=== PATIENT | female | born 1995 | race Two or more races ===

== ENCOUNTER 2022-01-11 13:02 | Emergency (ER) | payer MEDICAID, OTHER ==
[~2022-01-11] VITALS: Ht 152.4 cm; Wt 72.6 kg
[2022-01-11 13:07] VITALS: BP 129/79
[2022-01-11 14:55] LABS: Basophils # (auto) 0 10 ^3/uL (0-0.2); Eosinophils # (auto) 0 10 ^3/uL (0-0.8)
[2022-01-11 14:58] LABS: Basophils % (auto) 0.6 % (0.0-2.0); Eosinophils % (auto) 0.2 % (0.0-7.0); Hemoglobin 13.6 g/dL (12.2-16.2); Lymphocytes # (auto) 1.9 10 ^3/uL (0.4-5.4); Mean Corpuscular Hemoglobin 30.2 pg (28.0-32.0); Mean Corpuscular Hgb Conc. 35.8 g/dL (32.0-36.0); Mean Corpuscular Volume 84.5 fL (80.0-100.0); Monocytes # (auto) 0.5 10 ^3/uL (0-1.3); Monocytes % (auto) 5.6 % (0.0-12.0); Neutrophils % (auto) 71.6 % (37.0-80.0); Red Cell Distribution Width 13.9 % (11.8-14.3); White Blood Cell 8.4 10^3/uL (4.4-10.8)
[2022-01-11 15:15] LABS: Urine Bacteria FEW /hpf (None Seen); Urine Blood Negative /uL (Negative); Urine Mucus FEW (None Seen); Urine Specific Gravity 1.032 (1.001-1.035); Urine WBC 5 /hpf (0 - 5)
[2022-01-11] MEDS ORDERED: TAMSULOSIN HYDROCHLORIDE 0.4 MG CAP PO ONE (16:15)
== END 2022-01-11 17:36 | disposition home or self-care (01) ==
LOC: ER 13:02
DX: O26.891 Other specified pregnancy related conditions, first trimester (principal); R10.2 Pelvic and perineal pain; Z3A.08 8 weeks gestation of pregnancy
CPT/HCPCS: 36415; 76801; 76817; 81001; 84702; 85025

== ENCOUNTER → 2022-07-10 | Outpatient (CLI) | payer MEDICAID | END | disposition home or self-care (01) | LOC: LAB 08:40 | PROVIDERS: ATTEND Obstetrics & Gynecology | DX: N76.0 Acute vaginitis (principal) | CPT/HCPCS: 82951 ==

== ENCOUNTER → 2022-07-18 | Outpatient (CLI) | payer MEDICAID ==
[2022-07-18 09:16] LABS: Basophils # (auto) 0 10 ^3/uL (0-0.2); Basophils % (auto) 0.4 % (0.0-2.0); Eosinophils # (auto) 0 10 ^3/uL (0-0.8); Eosinophils % (auto) 0.2 % (0.0-7.0); Hematocrit 35.5 % (36.0-46.0); Hemoglobin 12.5 g/dL (12.2-16.2); Lymphocytes # (auto) 1.2 10 ^3/uL (0.4-5.4); Lymphocytes % (auto) 17.7 % (10.0-50.0); Mean Corpuscular Hemoglobin 30.5 pg (28.0-32.0); Mean Corpuscular Hgb Conc. 35.2 g/dL (32.0-36.0); Mean Corpuscular Volume 86.6 fL (80.0-100.0); Monocytes # (auto) 0.3 10 ^3/uL (0-1.3); Monocytes % (auto) 3.8 % (0.0-12.0); Neutrophils # (auto) 5.2 10 ^3/uL (1.6-8.6); Neutrophils % (auto) 77.9 % (37.0-80.0); Nucleated Red Blood Cells % 0.1 %; Red Cell Distribution Width 12.8 % (11.8-14.3); White Blood Cell 6.6 10^3/uL (4.4-10.8)
[2022-07-19 07:06] LABS: RPR Non Reactive (Non Reactive)
== END | disposition home or self-care (01) ==
LOC: LAB 08:55
PROVIDERS: ATTEND Obstetrics & Gynecology
DX: Z34.80 Encounter for supervision of other normal pregnancy, unspecified trimester (principal); Z3A.00 Weeks of gestation of pregnancy not specified
CPT/HCPCS: 36415; 84112; 85025; 86592

== ENCOUNTER 2022-08-12 04:06 | Inpatient (IN) | payer MEDICAID ==
[2022-08-11 09:34] LABS: Amphetamine Screen, Urine NEGATIVE (NEGATIVE); Barbiturate Scree,Urine NEGATIVE (NEGATIVE); Benzodiazephine Screen, Urine NEGATIVE (NEGATIVE); Cannabinoid Screen, Urine NEGATIVE (NEGATIVE); Cocaine Screen, Urine NEGATIVE (NEGATIVE); Opiate Scree,Urine NEGATIVE (NEGATIVE); Phencyclidine Screen, Urine NEGATIVE (NEGATIVE)
[2022-08-11 09:44] LABS: INR 0.87 (0.9-1.15); Partial Thromboplastin Time 26.8 sec (24.6-33.4)
[2022-08-11 09:47] LABS: Basophils # (auto) 0 10 ^3/uL (0-0.2); Basophils % (auto) 0.1 % (0.0-2.0); Eosinophils # (auto) 0 10 ^3/uL (0-0.8); Eosinophils % (auto) 0.3 % (0.0-7.0); Hematocrit 36.9 % (36.0-46.0); Hemoglobin 12.7 g/dL (12.2-16.2); Lymphocytes # (auto) 1.1 10 ^3/uL (0.4-5.4); Lymphocytes % (auto) 16.2 % (10.0-50.0); Mean Corpuscular Hemoglobin 30.1 pg (28.0-32.0); Mean Corpuscular Hgb Conc. 34.4 g/dL (32.0-36.0); Mean Corpuscular Volume 87.3 fL (80.0-100.0); Monocytes # (auto) 0.4 10 ^3/uL (0-1.3); Monocytes % (auto) 6.2 % (0.0-12.0); Neutrophils # (auto) 5.1 10 ^3/uL (1.6-8.6); Neutrophils % (auto) 77.2 % (37.0-80.0); Nucleated Red Blood Cells % 0.1 %; Red Blood Cells 4.23 10^6/uL (4.0-5.20); Red Cell Distribution Width 13.2 % (11.8-14.3); White Blood Cell 6.6 10^3/uL (4.4-10.8)
[2022-08-11 09:56] LABS: Albumin 2.5 g/dL (3.4-5.0); Calcium 8.9 mg/dL (8.5-10.1); Potassium 4.2 mmol/L (3.5-5.1)
[2022-08-11 09:58] LABS: Urine Blood Negative /uL (Negative); Urine Specific Gravity 1.017 (1.001-1.035)
[2022-08-12] VITALS (17 sets, daily range): BP systolic 95–127; BP diastolic 49–73
[~2022-08-12] VITALS: Ht 152.4 cm; Wt 81.6 kg
[2022-08-12] MEDS ORDERED: ceFAZolin 2 GM in D5W 5% 100 ML IV ONE (04:30)
[2022-08-12] MEDS ORDERED: LACTATED RINGER'S 1,000 ML IV ONE (04:30)
[2022-08-12 06:06] LABS: RPR Non Reactive (Non Reactive)
[2022-08-12] MEDS: LACTATED RINGER'S 1,000 ML IV SCH ×2 (06:41→13:07)
[2022-08-12] MEDS ORDERED: ONDANSETRON HCL 4 MG/2 ML VIAL ONE (07:00)
[2022-08-12] MEDS ORDERED: oxyTOCIN 10 UNIT/ML 10ML VIAL ONE (07:00)
[2022-08-12] MEDS ORDERED: DexAMETHasone SOD PHOS 10MG/1ML VIAL INJ ONE (07:00)
[2022-08-12] MEDS ORDERED: fentaNYL CITRATE 100 MCG/2 ML VL ONE (07:01)
[2022-08-12] MEDS ORDERED: MORPHINE SULF PF 5 MG/10 ML VIAL ONE (07:01)
[2022-08-12] MEDS ORDERED: SODIUM CHLORIDE LOCK 10 ML ONE (07:38)
[2022-08-12] MEDS ORDERED: GUM (CHEWING) 1 GUM CHEW CHEW ONE (08:30)
[2022-08-12] MEDS ORDERED: LACT. RINGERS/OXYTOCIN 20UNITS 1,000 ML IV ONE (08:30)
[2022-08-12] MEDS ORDERED: ceFAZolin 1GM/50ML 50 ML IV SCH (08:30)
[2022-08-12] MEDS ORDERED: ONDANSETRON HCL 4 MG/2 ML VIAL IV PRN ×2 (08:30→08:45)
[2022-08-12] MEDS ORDERED: HYDROmorphone HCL 2 MG/ML VL/or syr IV PRN (08:45)
[2022-08-12] MEDS ORDERED: NALOXONE HCL 0.4 MG/ML VIAL IV PRN (08:45)
[2022-08-12] MEDS ORDERED: diphenhdrAMINE HCL 50 MG/1 ML VL IV PRN (08:45)
[2022-08-12] MEDS ORDERED: NALBUPHINE HCL 10 MG/1ml INJECTION IV ONE (08:45)
[2022-08-12] MEDS: ACETAMINOPHEN IV 1000 MG/100ML (10MG/ML) IV PRN ×2 (11:28→20:47)
[2022-08-12] MEDS ORDERED: METHYLERGONOVINE MALEATE 0.2 MG/ML AMP IM ONE (13:45)
[2022-08-12] MEDS ORDERED: LIDOCAINE 2%HCL (LOCAL ANESTH.) INJ 20ML MDV ONE (13:45)
[2022-08-12] MEDS ORDERED: LACT. RINGERS/OXYTOCIN 20UNITS 0 ML IV ONE (13:46)
[2022-08-12] MEDS: ceFAZolin 1GM/50ML 50 ML IV SCH (18:00)
[2022-08-12 22:32] LABS: Basophils # (auto) 0 10 ^3/uL (0-0.2); Basophils % (auto) 0.3 % (0.0-2.0); Eosinophils # (auto) 0 10 ^3/uL (0-0.8); Hematocrit 33.5 % (36.0-46.0); Hemoglobin 10.9 g/dL (12.2-16.2); Lymphocytes # (auto) 1.1 10 ^3/uL (0.4-5.4); Lymphocytes % (auto) 8.2 % (10.0-50.0); Mean Corpuscular Hemoglobin 28.5 pg (28.0-32.0); Mean Corpuscular Hgb Conc. 32.6 g/dL (32.0-36.0); Mean Corpuscular Volume 87.4 fL (80.0-100.0); Monocytes # (auto) 0.7 10 ^3/uL (0-1.3); Monocytes % (auto) 5.6 % (0.0-12.0); Neutrophils # (auto) 11.2 10 ^3/uL (1.6-8.6); Neutrophils % (auto) 85.9 % (37.0-80.0); Red Blood Cells 3.83 10^6/uL (4.0-5.20); Red Cell Distribution Width 13.2 % (11.8-14.3); White Blood Cell 13.1 10^3/uL (4.4-10.8)
[2022-08-13] VITALS (14 sets, daily range): BP systolic 93–105; BP diastolic 48–73
[2022-08-13] MEDS: ceFAZolin 1GM/50ML 50 ML IV SCH ×2 (02:39→13:10)
[2022-08-13] MEDS ORDERED: ACETAMINOPHEN IV 1000 MG/100ML (10MG/ML) IV PRN (05:00)
[2022-08-13 06:10] LABS: Basophils # (auto) 0 10 ^3/uL (0-0.2); Basophils % (auto) 0.4 % (0.0-2.0); Eosinophils # (auto) 0 10 ^3/uL (0-0.8); Eosinophils % (auto) 0.1 % (0.0-7.0); Hematocrit 31.2 % (36.0-46.0); Hemoglobin 10.3 g/dL (12.2-16.2); Lymphocytes # (auto) 1.5 10 ^3/uL (0.4-5.4); Lymphocytes % (auto) 13.5 % (10.0-50.0); Mean Corpuscular Hemoglobin 28.9 pg (28.0-32.0); Mean Corpuscular Volume 87.7 fL (80.0-100.0); Monocytes # (auto) 0.7 10 ^3/uL (0-1.3); Red Blood Cells 3.56 10^6/uL (4.0-5.20); Red Cell Distribution Width 13.2 % (11.8-14.3); White Blood Cell 11.3 10^3/uL (4.4-10.8)
[2022-08-13] MEDS ORDERED: BISACODYL 10 MG RECT SUPP PR PRN (08:45)
[2022-08-13] MEDS: HYDROcodone-ACET 5/325MG TAB PO PRN ×4 (09:11→22:27)
[2022-08-13] MEDS: SIMETHICONE 80 MG CHEWABLE TABLET PO SCH ×3 (11:25→22:27)
[2022-08-13] MEDS: DOCUSATE SOD 100 MG CAP PO SCH ×2 (11:25→22:27)
[2022-08-13] MEDS: IBUPROFEN 800 MG TAB PO PRN ×2 (11:26→19:44)
[2022-08-13] MEDS ORDERED: ceFAZolin 1GM/50ML 50 ML IV ONE (12:51)
[2022-08-14 03:00] VITALS: BP 104/57
[2022-08-14] MEDS: IBUPROFEN 800 MG TAB PO PRN ×2 (03:31→11:39)
[2022-08-14] MEDS: SIMETHICONE 80 MG CHEWABLE TABLET PO SCH ×2 (05:34→11:39)
[2022-08-14] MEDS: HYDROcodone-ACET 5/325MG TAB PO PRN ×3 (05:45→16:49)
[2022-08-14 06:45] VITALS: BP 118/66
[2022-08-14] MEDS: DOCUSATE SOD 100 MG CAP PO SCH (10:14)
[2022-08-14 11:30] VITALS: BP 115/70
[2022-08-14] MEDS ORDERED: PREN1TAB71 OR (14:14)
[2022-08-14] MEDS ORDERED: HYDR-4902 PO (14:27)
[2022-08-14] MEDS ORDERED: DOCU-94 PO (14:27)
[2022-08-14] MEDS ORDERED: IBUP800T27 PO (14:27)
[2022-08-14 15:30] VITALS: BP 103/66
[2022-08-14] MEDS ORDERED: TETANUS-DIPTH-ACEL PERTUSSIS 0.5ML SYR Tdap IM ONE (16:15)
[2022-08-14 18:30] VITALS: BP 105/66
== END 2022-08-14 18:30 | disposition home or self-care (01) | DRG 540 ==
LOC: LDRP 04:06
PROVIDERS: ADMIT Obstetrics & Gynecology; ATTEND Obstetrics & Gynecology
PROC: 10D00Z1 Extraction of Products of Conception, Low, Open Approach (ICD-10-PCS; principal; 2022-08-12 07:25)
PROC: 3E0234Z Introduction of Serum, Toxoid and Vaccine into Muscle, Percutaneous Approach (ICD-10-PCS; 2022-08-14)
DX: O34.211 Maternal care for low transverse scar from previous cesarean delivery (principal); Z20.822 Contact with and (suspected) exposure to COVID-19; Z37.0 Single live birth; Z3A.39 39 weeks gestation of pregnancy; Z23 Encounter for immunization
CPT/HCPCS: 36415; 59025; 80053; 80307; 81003; 85025; 85610; 85730; 86592; 86850; 86900; 86901; 90715; 94760; 94762; 96360; 96361; 96365; 96366; G0378; J0131; J0690; J1100; J2405; J2590; J7060